=== PATIENT | male | born 1965 | race Caucasian/White ===

== ENCOUNTER 2023-08-03 10:00 | Outpatient (RCR) | payer BC, SELFPAY | END 2023-09-25 14:39 | disposition home or self-care (01) | PROVIDERS: PCP Family Medicine; Visit Provider Family Medicine | DX: M54.50 Low back pain, unspecified (principal); M62.81 Muscle weakness (generalized); Z51.89 Encounter for other specified aftercare | CPT/HCPCS: 97110; 97140; 97161 ==